=== PATIENT | male | born 1955 ===

== ENCOUNTER 2025-05-08 22:42 | Emergency (ER) | payer MEDICARE, MEDICAID ==
[~2025-05-08] VITALS: Ht 182.9 cm; Wt 129.4 kg
[2025-05-08] MEDS ORDERED: EPINEPHrine 1:10,000 [1 MG/10 ML] SYRINGE IVP ONE (22:43)
[2025-05-08 22:53] VITALS: BP 0/0; PULSE 0; RESP 29; TEMP 96.5; O2SAT 90
== END 2025-05-09 02:13 ==
LOC: EDBD 22:42 → EMS 22:42
DX: I46.9 Cardiac arrest, cause unspecified (principal)
CPT/HCPCS: 99285; 92950; J0171